=== PATIENT | male | born 1950 | race Two or more races ===

== ENCOUNTER 2019-12-04 08:32 | Outpatient (CLI) | payer OTHER | END 2019-12-04 08:40 | disposition home or self-care (01) | LOC: RAD 08:32 | PROVIDERS: ATTEND Internal Medicine | DX: R07.89 Other chest pain (principal) ==

== ENCOUNTER 2020-07-06 08:34 | Outpatient (CLI) | payer OTHER | END 2020-07-06 08:45 | disposition home or self-care (01) | LOC: RAD 08:34 | PROVIDERS: ATTEND Internal Medicine | DX: M25.541 Pain in joints of right hand (principal); M25.542 Pain in joints of left hand; M25.521 Pain in right elbow; M25.522 Pain in left elbow; M54.2 Cervicalgia ==

== ENCOUNTER 2020-10-04 08:14 | Outpatient (CLI) | payer OTHER | END 2020-10-04 08:36 | disposition home or self-care (01) | LOC: SONOGRAMA 08:14 | PROVIDERS: ATTEND Urology | DX: R31.21 Asymptomatic microscopic hematuria (principal) ==

== ENCOUNTER 2020-10-21 08:50 | Outpatient (CLI) | payer OTHER | END 2020-10-21 09:00 | disposition home or self-care (01) | LOC: TOM 08:50 | PROVIDERS: ATTEND Urology | DX: N20.0 Calculus of kidney (principal); R33.8 Other retention of urine ==

== ENCOUNTER 2020-11-02 07:28 | Outpatient (CLI) | payer OTHER | END 2020-11-02 07:39 | disposition home or self-care (01) | LOC: TOM 07:28 | PROVIDERS: ATTEND Urology | DX: R33.8 Other retention of urine (principal) ==

== ENCOUNTER 2021-02-15 11:04 | Outpatient (CLI) | payer OTHER | END 2021-02-15 11:05 | disposition home or self-care (01) | LOC: NUCLEAR 11:04 | DX: I73.9 Peripheral vascular disease, unspecified (principal) ==

== ENCOUNTER 2021-06-01 08:02 | Outpatient (CLI) | payer OTHER | END 2021-06-01 08:12 | disposition home or self-care (01) | LOC: TOM 08:02 | PROVIDERS: ATTEND Urology | DX: N20.0 Calculus of kidney (principal); N20.1 Calculus of ureter ==

== ENCOUNTER 2021-08-18 08:06 | Outpatient (CLI) | payer OTHER | END 2021-08-18 08:14 | disposition home or self-care (01) | LOC: RAD 08:06 | DX: N20.1 Calculus of ureter (principal) ==

== ENCOUNTER 2021-10-09 08:26 | Outpatient (CLI) | payer OTHER | END 2021-10-09 08:28 | disposition home or self-care (01) | LOC: RAD 08:26 | PROVIDERS: ATTEND Urology | DX: N20.1 Calculus of ureter (principal) ==

== ENCOUNTER 2021-12-04 10:43 | Outpatient (CLI) | payer OTHER | END 2021-12-04 12:21 | disposition home or self-care (01) | LOC: RAD 10:43 | PROVIDERS: ATTEND Urology | DX: N20.0 Calculus of kidney (principal); N20.1 Calculus of ureter ==

== ENCOUNTER 2022-01-04 07:32 | Outpatient (CLI) | payer OTHER | END 2022-01-04 07:43 | disposition home or self-care (01) | LOC: TOM 07:32 | PROVIDERS: ATTEND Urology | DX: N20.0 Calculus of kidney (principal) ==

== ENCOUNTER 2022-01-24 08:58 | Outpatient (CLI) | payer OTHER | END 2022-01-24 09:09 | disposition home or self-care (01) | LOC: RAD 08:58 | PROVIDERS: ATTEND Urology | DX: N20.0 Calculus of kidney (principal) ==

== ENCOUNTER 2022-03-16 08:57 | Outpatient (CLI) | payer OTHER | END 2022-03-16 09:03 | disposition home or self-care (01) | LOC: RAD 08:57 | PROVIDERS: ATTEND Specialist | DX: N20.0 Calculus of kidney (principal) ==

== ENCOUNTER 2022-03-30 07:42 | Outpatient (CLI) | payer OTHER | END 2022-03-30 08:07 | disposition home or self-care (01) | LOC: RAD 07:42 | PROVIDERS: ATTEND Urology | DX: N20.1 Calculus of ureter (principal) ==

== ENCOUNTER 2022-04-26 09:32 | Outpatient (CLI) | payer OTHER | END 2022-04-26 09:37 | disposition home or self-care (01) | LOC: RAD 09:32 | PROVIDERS: ATTEND Urology | DX: N20.0 Calculus of kidney (principal) ==

== ENCOUNTER 2022-05-10 09:25 | Outpatient (CLI) | payer OTHER | END 2022-05-10 09:30 | disposition home or self-care (01) | LOC: RAD 09:25 | PROVIDERS: ATTEND Urology | DX: N20.1 Calculus of ureter (principal) ==

== ENCOUNTER 2022-08-25 08:24 | Outpatient (CLI) | payer OTHER | END 2022-08-25 08:53 | disposition home or self-care (01) | LOC: RAD 08:24 | PROVIDERS: ATTEND Urology | DX: N20.0 Calculus of kidney (principal) ==

== ENCOUNTER 2022-09-28 09:02 | Outpatient (CLI) | payer OTHER | END 2022-09-28 09:06 | disposition home or self-care (01) | LOC: SONOGRAMA 09:02 | PROVIDERS: ATTEND Urology | DX: N20.0 Calculus of kidney (principal) ==

== ENCOUNTER 2023-09-23 08:54 | Outpatient (CLI) | payer OTHER | END 2023-09-23 08:58 | disposition home or self-care (01) | LOC: NUCLEAR 08:54 | PROVIDERS: ATTEND Internal Medicine | DX: I65.29 Occlusion and stenosis of unspecified carotid artery (principal); I11.9 Hypertensive heart disease without heart failure ==

== ENCOUNTER 2023-10-14 07:15 | Outpatient (CLI) | payer OTHER | END 2023-10-14 07:18 | disposition home or self-care (01) | LOC: RAD 07:15 | PROVIDERS: ATTEND Urology | DX: N20.0 Calculus of kidney (principal) ==

== ENCOUNTER 2024-01-21 07:23 | Outpatient (CLI) | payer OTHER | END 2024-01-21 07:24 | disposition home or self-care (01) | LOC: NUCLEAR 07:23 | PROVIDERS: ATTEND Internal Medicine | DX: I20.9 Angina pectoris, unspecified (principal) | CPT/HCPCS: 78452; 93017; A9500 ==

== ENCOUNTER 2024-08-28 09:03 | Outpatient (CLI) | payer OTHER | END 2024-08-28 09:09 | disposition home or self-care (01) | LOC: RAD 09:03 | PROVIDERS: ATTEND Ophthalmology | DX: Z01.811 Encounter for preprocedural respiratory examination (principal) ==